=== PATIENT | female | born 1990 | race Caucasian/White ===

== ENCOUNTER 2016-12-21 23:57 | Emergency (ER) | payer SELFPAY ==
[~2016-12-21] VITALS: Ht 167.6 cm; Wt 63.5 kg
[2016-12-22 00:04] VITALS: BP 100/56
[2016-12-22] MEDS ORDERED: ACETAMINOPHEN 325 MG TABLET PO ONE (01:00)
[2016-12-22] MEDS ORDERED: ACETAMINOPHEN ES 500 MG TABLET ONE (01:02)
== END 2016-12-22 01:32 | disposition home or self-care (01) ==
LOC: ER 12-22 00:03
DX: S16.1XXA Strain of muscle, fascia and tendon at neck level, initial encounter (principal); F10.10 Alcohol abuse, uncomplicated; V43.52XA Car driver injured in collision with other type car in traffic accident, initial encounter; Y93.89 Activity, other specified; Y92.410 Unspecified street and highway as the place of occurrence of the external cause; Y99.9 Unspecified external cause status
CPT/HCPCS: 99282; A4606; Z7610